=== PATIENT | female | born 1985 | race Caucasian/White ===

== ENCOUNTER → 2017-12-03 15:47 | Outpatient (CLI) | payer BC, MEDICAID, SELFPAY ==
[2017-12-03 16:28] LABS: Absolute Lymphocyte Count 1.41 X10^3/ul (0.83-4.51); Absolute Neutrophil Count 7.6 X10^3/uL (2.0-7.7); Basophil# 0.02 X10^3/uL; Basophil% 0.2 % (0-1); Eosinophil# 0.33 X10^3/uL; Eosinophils% 3.3 % (0-5); Hematocrit 39.7 % (37-47); Hemoglobin 13.6 g/dl (12.0-15.0); Lymphocyte # 1.41 X10^3/ul (4.0); Mean Corp Hgb Conc 34.3 g/gl (32-36); Mean Corpuscular Hgb 30.8 pg (27.0-32.0); Mean Corpuscular Volume 89.8 fL (81-99); Mean Platelet Vol. 9.3 fl (6.2-12.0); Monocyte# 0.63 X10^3/uL; Monocyte% 6.3 % (0-10); Neutrophil # 7.61 X10^3/uL (2.7-7.7); Neutrophil % 75.4 % (47-70); POSITIVE COUNT NO; POSITIVE DIFFERENTIAL NO; POSITIVE MORPHOLOGY NO; Platelet Count 286 K/mm3 (150-450); RBC Distribution Width CV 13.2 % (11.6-14.6); Red Blood Count 4.42 M/mm3 (4.2-5.4); White Blood Count 10.1 K/mm3 (4.4-11.0)
== END ==
PROVIDERS: Visit Provider Nurse Practitioner Women's Health
DX: O09.90 Supervision of high risk pregnancy, unspecified, unspecified trimester (principal); O09.899 Supervision of other high risk pregnancies, unspecified trimester; Z67.91 Unspecified blood type, Rh negative
CPT/HCPCS: 36415; 85025; 86850; 86900

== ENCOUNTER 2018-01-12 17:20 | Outpatient (CLI) | payer BC, MEDICAID, SELFPAY ==
[2018-01-12 17:27] VITALS: BMI 50.8
--- NOTE | 2018-01-12 17:28 | US_ITS ---
STUDY: SECOND AND THIRD TRIMESTER OBSTETRICAL ULTRASOUND - LIMITED REASON FOR EXAM: Female, 32 years old. growth. LMP: 05/22/2017 PRIOR ULTRASOUND: None. TECHNIQUE: Transabdominal ultrasound evaluation was performed. FINDINGS: There is a single intrauterine fetus. The fetus is in a breech presentation. There is demonstrated cardiac activity with a heart rate of 161 bpm. There is a normal amniotic fluid volume. The largest amniotic fluid pocket measures 5.9 cm. The amniotic fluid index (FUNMI) is 18.9 cm. The placenta is anterior in location and is not low lying. There are Grade 1 placental changes. The cervix measures 3.0 cm in length. BIOMETRY: BPD: 8.0: 32 weeks, 2 days HC: 31.5: 35 weeks, 3 days AC: 29.6: 33 weeks, 5 days FL: 6.3: 34 weeks, 6 days Age by LMP: 33 weeks, 4 days. JULIAN by LMP: 02/26/2018. age by prior US: weeks, days. JULIAN by prior US: . age by current US: 33 weeks, 4 days. JULIAN by current US: 02/26/2018. Estimated weight: 2164 grams, +/- 316 grams, 34 percentile. Gender: US/OB Limited With Biometrics IMPRESSION: Single live fetus in a vertex presentation. survey not performed on this exam. Placenta is grade 1 and is not low-lying. Cervix is closed. age by current US: 33 weeks, 4 days. JULIAN by current US: 02/26/2018. Estimated weight: 2164 grams, +/- 316 grams, 34 percentile. Electronically Signed: Armand Epstein MD at 18:52 EDT , Service support ,
--- NOTE | 2018-01-19 05:23 | OB.TRI.HP_ITS ---
- Problem List (1) Supervision of high risk , antepartum Status: Acute Comment: JULIAN 02/26/18 boy Antonio John Paul ([place]) (2) BMI 50.0-59.9, adult Status: Acute Comment: weekly nst from 32 on History of Present Illness Reason For Visit: PROLONGED MONITORING Home Medications Medication Instructions Recorded Vits [Prenatabs FA] 1 tab PO DAILY 01/15/17 hydroxyprogesterone caproate 250 250 mg IM QWEEK 11/19/17 mg/mL intramuscular oil ondansetron HCl 4 mg tablet 8 mg PO Q4H #90 tab 11/19/17 blood sugar diagnostic strips See Dose Instructions .ROUTE 12/03/17 .MEDSUPPLY #50 ea blood-glucose meter kit See Dose Instructions .ROUTE 12/03/17 .MEDSUPPLY #1 ea Allergies metronidazole [From Flagyl] Allergy (Mild, Verified 01/12/18 16:32) Other erythromycin base Allergy (Verified 01/12/18 16:32) Hives Penicillins Allergy (Verified 01/12/18 16:32) Unknown azithromycin Adverse Reaction (Verified 01/12/18 16:32) Other YEAST INFECTION cirpo Allergy (Mild, Uncoded 01/12/18 16:32) Other - Pertinent Past Medical History Surgical History: Past Surgical History (Last Reviewed 01/12/18 @ 16:33 by Rosa Person) S/P cholecystectomy 2017 NST - FHR Rate Baby A Baseline: 150 Variability:: Moderate Accelerations:: 15 x 15 Decelerations:: None NST Reactive:: Yes FHR Category:: Category I Uterine Activity:: no regular Impression/Plan NST done secondary to obesity, nonreactive NST in office, reactive nst, growth us WNL
== END 2018-01-12 19:20 | disposition home or self-care (01) ==
LOC: WPOUT 17:26 → WP 17:27
PROVIDERS: Visit Provider Obstetrics & Gynecology
DX: O99.210 Obesity complicating pregnancy, unspecified trimester (principal); Z68.43 Body mass index [BMI] 50.0-59.9, adult; Z3A.00 Weeks of gestation of pregnancy not specified
CPT/HCPCS: 59025; 59050; 76816; 99218; G0378

== ENCOUNTER → 2018-01-29 14:00 | Outpatient (CLI) | payer BC, MEDICAID, SELFPAY ==
--- NOTE | 2018-01-29 14:00 | DT_ITS ---
This patient was seen during an EMR downtime January 25, 2018 - February 01, 2018. This patient may have a combination of paper and electronic documentation or all paper documentation. All documentation is viewable within the e-chart portion of [employer] for each patient visit.
== END ==
PROVIDERS: Visit Provider Obstetrics & Gynecology
DX: Z34.83 Encounter for supervision of other normal pregnancy, third trimester (principal)
CPT/HCPCS: 82043; 82570; 84156

== ENCOUNTER 2018-01-31 15:55 | Outpatient (CLI) | payer BC, MEDICAID, SELFPAY ==
--- NOTE | 2018-01-31 15:55 | DT_ITS ---
This patient was seen during an EMR downtime January 25, 2018 - February 01, 2018. This patient may have a combination of paper and electronic documentation or all paper documentation. All documentation is viewable within the e-chart portion of [employer] for each patient visit.
[2018-02-01 10:54] LABS: Group B Strep DNA By PCR Negative (Negative); Internal Control PASS; Probe Check PASS; Specimen Processing Control PASS
== END 2018-01-31 17:05 | disposition home or self-care (01) ==
LOC: WPOUT 17:24 → WP 17:25
PROVIDERS: Visit Provider Obstetrics & Gynecology
DX: O36.8190 Decreased fetal movements, unspecified trimester, not applicable or unspecified (principal); Z3A.00 Weeks of gestation of pregnancy not specified
CPT/HCPCS: 59025; 59050; 87081; 87653; 99218; G0378

== ENCOUNTER → 2018-02-11 16:14 | Outpatient (CLI) | payer BC, MEDICAID, SELFPAY ==
--- NOTE | 2018-02-11 16:16 | US_ITS ---
STUDY: OBSTETRICAL ULTRASOUND - BIOPHYSICAL PROFILE REASON FOR EXAM: Female, 32 years old. well being. No movement in office LMP: 05/22/2017 PRIOR ULTRASOUND: 01/12/2018 TECHNIQUE: Transabdominal ultrasound evaluation was performed. FINDINGS: There is a single intrauterine fetus. The fetus is in a cephalic presentation. There is demonstrated cardiac activity with a heart rate of 160 bpm. There is a normal amniotic fluid volume. The largest amniotic fluid pocket measures 11.7 x 5.2 cm. The amniotic fluid index (FUNMI) is 13.5 cm. The placenta is anterior in location and is not low lying. There are Grade 1 placental changes. Age by LMP: 37 weeks, 6 days. JULIAN by LMP: 02/26/2018. Gender: Male BIOPHYSICAL PROFILE: Breathing Movements (FBM): 0 Gross Body Movements (GBM): 2 Tone (FT): 2 Amniotic Fluid Volume (AFV): 2 TOTAL SCORE: US/Biophysical Prof W/O Non Stres IMPRESSION: Abnormal biophysical profile 01/29. No demonstrated breathing movement N.B. : The above information has been verbally conveyed by Mikie Clemente DO to Dr. Opal Bailey, Referring Physician, on 02/11/2018 17:49:15 (ET). Electronically Signed: Mikie Clemente DO at 17:49 EDT Tel , Service support , N.B. : The above information has been verbally conveyed by Mikie Clemente DO to Dr. Opal Bailey, Referring Physician, on 02/11/2018 17:49:15 (ET).
== END ==
PROVIDERS: Family Provider Family Medicine; PCP Family Medicine; Visit Provider Obstetrics & Gynecology
DX: O36.8130 Decreased fetal movements, third trimester, not applicable or unspecified (principal); Z3A.37 37 weeks gestation of pregnancy
CPT/HCPCS: 76819

== ENCOUNTER 2018-02-12 17:35 | Inpatient (IN) | payer BC, MEDICAID, SELFPAY ==
[2018-02-12 15:51] VITALS: BMI 51.8
--- NOTE | 2018-02-12 16:41 | US_ITS ---
STUDY: OBSTETRICAL ULTRASOUND - BIOPHYSICAL PROFILE REASON FOR EXAM: Female, 32 years old. well-being. LMP: May 22, 2017. PRIOR ULTRASOUND: January 12, 2018 and February 11, 2018 TECHNIQUE: Transabdominal ultrasound evaluation was performed. FINDINGS: There is a single intrauterine fetus. The fetus is in a cephalic presentation. There is demonstrated cardiac activity with a heart rate of 152 bpm. There is a normal amniotic fluid volume. The largest amniotic fluid pocket measures 6.2 cm. The amniotic fluid index (FUNMI) is 14.97 cm. The placenta is . There are Grade 1 placental changes. Age by LMP: 37 weeks, 6 days. JULIAN by LMP: January 27, 2018.. age by prior US: 37 weeks, 6 days. JULIAN by prior US: January 27, 2018. BIOPHYSICAL PROFILE: Breathing Movements (FBM): 0 Gross Body Movements (GBM): 0 Tone (FT): 2 Amniotic Fluid Volume (AFV): 2 TOTAL SCORE: 4 / 8 US/Biophysical Prof W/O Non Stres IMPRESSION: biophysical profile of 48. Electronically Signed: Maico Griffin DO at 18:41 EDT Tel [phone], Service support ,
[2018-02-12] MEDS: Lactated Ringers 1,000 ML 50 ML IV (18:00)
[2018-02-12 18:27] LABS: Hematocrit 40.7 % (37-47); Mean Corp Hgb Conc 34.4 g/gl (32-36); Mean Corpuscular Hgb 30.6 pg (27.0-32.0); Mean Corpuscular Volume 89.1 fL (81-99); Mean Platelet Vol. 9.4 fl (6.2-12.0); Platelet Count 285 K/mm3 (150-450); RBC Distribution Width CV 14.1 % (11.6-14.6); RBC Distribution Width SD 45.1 fl (35.1-43.9); Red Blood Count 4.57 M/mm3 (4.2-5.4); Scan Indicated on CBC? Y/N NO; White Blood Count 11.5 K/mm3 (4.4-11.0)
[2018-02-12] MEDS: Oxytocin 30 units/NS 500 ml 30 UNITS/500 ML IV.SOLN IV (20:00)
[2018-02-12 21:47] LABS: Chlamydia Trachomatis by PCR Negative (Negative); Neisserai gonorrhoeae by PCR Negative (Negative); Probe Check PASS; Sample Adequacy Control PASS; Specimen Processing Control PASS
[2018-02-13] VITALS (21 sets, daily range): BP systolic 91–139; BP diastolic 55–85; PULSE 68–84; RESP 14–18; TEMP 35.7–36.8; O2SAT 97–100
[2018-02-13] MEDS: Lactated Ringers 1,000 ML 50 ML IV ×2 (00:22→06:00)
--- NOTE | 2018-02-13 00:53 | PCM.HP.OB ---
- Problem List (1) H/O biophysical profile with non-stress test Status: Acute (2) Rh negative status during Status: Acute Qualifiers: Comment: rhogam at 28 weeks and PRN (3) History of marijuana use Status: Acute Comment: random tox screen, encouraged cessation (4) Supervision of high risk , antepartum Status: Acute Comment: JULIAN 02/26/18 boy Antonio John Paul ([place]) (5) BMI 50.0-59.9, adult Status: Acute Comment: weekly nst from 32 on (6) History of PROM in previous , currently Status: Acute Qualifiers: Comment: sees MFM, progesterone injections History Date of Admission: 02/12/18 Final JULIAN: 02/26/18 Gestational age: 38 Weeks and 1 Days History of this : This is a 32 year-old, G2, P0 at 38 weeks gestational age 1 day. she was seen in the office yesterday for weekly nst for obesity and had a nonreactive NST with a BPP of 6/8. repeat nst in 24 hours was still non reactive and the BPP was only 4/8- 2 off for gross movement and for breathing. due to the 4/8 BPP it was recommended for IOL. Surgical History: Surgical History (Last Reviewed 02/11/18 @ 15:37 by Teressa Delgado) S/P cholecystectomy Z90.49 2017 Allergies metronidazole [From Flagyl] Allergy (Mild, Verified 02/11/18 15:36) Other erythromycin base Allergy (Verified 02/12/18 15:53) Hives Penicillins Allergy (Verified 02/12/18 15:53) Unknown azithromycin Adverse Reaction (Verified 02/12/18 15:53) Other YEAST INFECTION cirpo Allergy (Mild, Uncoded 02/12/18 15:53) Other NAUSEATED Home Medications: Home Medications Vits [Prenatabs FA] 1 tab PO DAILY 01/15/17 ondansetron HCl 4 mg tablet 8 mg PO Q4H #90 tab 11/19/17 Smoking Status: Never smoker Alcohol: None Substance Use Type: Marijuana Number of Fetus(es): 1 Heart Tracin moderate variability non reactive category I tracing TOCO Analysis: irregular ctx History Past Pregnancies: Past Pregnancies Pregancy History 2 Elective abortions Hx Para Spontaneous abortions 1 Hx # Term Pregnancies Ectopic pregnancies Hx # Pregnancies Multiple births # of living children Past Pregnancies Del. Date Name GA/Weeks Outcome Route Bth Weight [facility] Unknown 01/08/17 19 week loss 19 spontaneous Delivery Date: 01/08/17 On 11/19/17 @ 15:59 MelvinOpal ross cervical insufficiency PPROM Delivery Date: On 11/19/17 @ 15:32 ZulyJuany robin Miscarriage at 19 weeks Labs: Mom's Labs & Results 02/12/18 02/12/18 02/12/18 18:00 18:00 18:25 WBC 11.5 H RBC 4.57 Hgb 14.0 Hct 40.7 MCV 89.1 MCH 30.6 MCHC 34.4 RDW 14.1 RDW Differential 45.1 H Plt Count 285 MPV 9.4 Chlam trachomat DNA PCR N.gonorrhoeae DNA (PCR) Blood Type Cancelled B NEGATIVE Antibody Screen Cancelled NEGATIVE 02/12/18 19:20 WBC RBC Hgb Hct MCV MCH MCHC RDW RDW Differential Plt Count MPV Chlam trachomat DNA PCR Negative N.gonorrhoeae DNA (PCR) Negative Blood Type Antibody Screen Course Did the patient receive Yes care? Labs Blood Type: B RH: NEGATIVE RPR/VDRL/Syphilis Nonreactive Rubella status Immune HbSAg Negative Date Done: 07/29/17 Chlamydia Not Done Gonorrhea Negative HIV/AIDS Non-Reactive Group B Strep: Negative Current Obstetrical History Gestational Diabetes No Incompetent Cervix No Infertility No IUGR No Macrosomia No Hypertension/Pre-eclampsia No Placenta Previa/Abruption No PTL/PROM No Uterine anomaly No Oligohydramnios No Polyhydramnios No Multiple gestation No Past Medical History Asthma No Diabetes No Hypertension No Heart disease No Mitral valve prolapse No Neurologic/Seizure disorder/ Yes: MIGRAINES Migraines Kidney disease No Liver disease No Varicosities No Clotting disorders/Hx of DVT No Thyroid Dysfunction No Other medical diseases No Psychiatric disorders No Major trauma No Abnormal PAP smear No Sleep apnea No Mammogram in the last 2 years No Social History Marital Status: Alleged father SHAHBAZ TITI Hx Smoking No Smoking Status Never smoker Substance Use Type Marijuana How long have you used LAST USED IN NOVEMBER 2017 substances (years)? Expected Infant Delivery Method: Spontaneous Vaginal Review of Systems Constitutional: Denies: Fever, Malaise Eyes: Denies: Blurred vision, Vision Change HEENT: Denies: Head Aches, Visual Changes Cardiovascular: Denies: Chest Pain, Palpitations Respiratory: Denies: Cough, Shortness of Breath, Wheezing Gastrointestinal: Denies: Abdominal Pain, Diarrhea, Nausea, Vomiting Genitourinary: Denies: Dysuria, Hematuria Musculoskeletal: Denies: Joint Pain, Muscle pain Skin: Denies: Lesions, Rash Neurological: Denies: Blurred vision, Focal weakness, Headaches Psychiatric: Denies: Anxiety, Depression Endocrine: Denies: Heat/ Cold Intolerance Hematologic/ Lymphatic: Denies: Easy Bruising, Easy Bleeding Physical Exam General: Alert, Cooperative, No apparent distress HEENT: Atraumatic, Normocephalic. Negative for: Thyromegaly, Lymphadenopathy Cardiovascular: Regular rate Lungs: Normal air movement Abdomen: Soft, Non Tender, Gravid Neurological: Deep Tendon Reflexes 2+/4 and Symmetrical, Neuro grossly intact. Negative for: Clonus ASSET MANAGEMENT COORDINATOR: Normal external genitalia. Negative for: Vulvar lesions Estimated gestational size: Appropriate for gestational size Presentation: Cephalic Cervix Dilation (cm): 3 Station: -3 Effacement (%): 50 Assessment/Plan All Active Problems (Last Reviewed 02/11/18 @ 15:37 by Teressa Delgado) H/O biophysical profile with non-stress test (Acute) Rh negative status during (Acute) History of marijuana use (Acute) Supervision of high risk , antepartum (Acute) BMI 50.0-59.9, adult (Acute) History of PROM in previous , currently (Acute) This is a 32 year-old, G [], P [], at 38 weeks gestational age.
[2018-02-13] MEDS: fentaNYL-bupivacaine (epidural) 100 ML BAG EPIDURAL (02:10)
--- NOTE | 2018-02-13 05:30 | PCM.PN.BLA ---
Progress Note in house monitoring the tracing for the last 4 1/2 hours. intermittent category I-II tracing. recurrent late decels resolved with position changes and IVFs. s/p epidural. patient has pitocin off and made change to 6 cm. continue expectant mangement- continue to monitor closely for well being and tolerance to labor. amnioinfusion going.
--- NOTE | 2018-02-13 08:51 | PCM.PN.BLA ---
Progress Note FHT 140s min-moderate variability. intermittent periods of late/variable decels and then spontaneous resolution. overall reassuring will continue to monitor labor progress because on adequate pitocin. pit at 5 mU.
[2018-02-13] MEDS: Ondansetron 4 MG/2 ML Vial IV (08:52)
[2018-02-13] MEDS: Sodium Citrate/Citric Acid 30 ML UDC PO (09:28)
--- NOTE | 2018-02-13 09:30 | PCM.PN.BLA ---
Progress Note fht min-moderate variability with recurrent late decels and severe variable with abnormal labor progress only 1/2 cm change in almost 2 hour of adequate contractions. proceed with primary for intolerance to labor.
--- NOTE | 2018-02-13 09:35 | OP.PCM_ITS ---
Problem List (1) H/O biophysical profile with non-stress test Status: Acute (2) Rh negative status during Status: Acute Qualifiers: Comment: rhogam at 28 weeks and PRN (3) History of marijuana use Status: Acute Comment: random tox screen, encouraged cessation (4) Supervision of high risk , antepartum Status: Acute Comment: JULIAN 02/26/18 boy Antonio John Paul [facility]) (5) BMI 50.0-59.9, adult Status: Acute Comment: weekly nst from 32 on (6) History of PROM in previous , currently Status: Acute Qualifiers: Comment: sees MFM, progesterone injections Report of Operation Date of Procedure: 02/13/18 Pre-Operative Diagnosis: recurrent decelerations with abnormal labor progress Post-Operative Diagnosis: same Surgery/Procedure Performed:: primary LTCS Description of Surgical Findings:: normal uterus tubes ovaries salvage winder: Zabrina Ferrara Type of Anesthesia:: Epidural Special Medications: ayalaef francesca Specimen's removed: male Drains: underwood Estimated Blood Loss (mL): 1200 Fluids Replaced: crystalloid Description of Procedure: patient was induce for a 4/8 bpp and had a FHT that had moderate variability upon presentation and no recurrent decels, and underwent over 12 hours of IOL with pitocin being turned on and off due to feta lintolerance to labor, and made only 3 cm of cervical change. Patient developed recurrent late and variable decels with min-moderate variability, and after almost 2 hours of adequate ctx and being 6 cm there was minimal cervical change with abnormal labor progress therefore the decision was made to perform a primary c section. The patient was placed in the dorsal supine position with leftward tilt. Patient was prepped and draped in the normal sterile fashion. Pfannenstiel skin incision was made with the scalpel and carried through to the underlying layer of fascia with the scalpel. Fascia was nicked in the midline and the incision extended laterally. The rectus bellies were dissected off superiorly and inferiorly with out complication both sharply and bluntly. The peritoneum was entered digitally. The incision was stretched and a low transverse uterine incision was made with the scalpel. The 's head was delivered atraumatically followed by the anterior and posterior shoulders without complication the rest of the delivered. The cord was clamped and cut and the infant was handed off to awaiting nurse. The placenta was delivered spontaneously immediately following and was noted to be intact and have a three- vessel cord. self retaining retractor was used. The uterus was cleared of all clots and debris, and the incision was closed in a double layer closure using # 1 Monocryl. The uterus was returned to the maternal abdomen and gutters were cleared of all clots and debris. The ovaries and fallopian tubes were noted to be within normal limits. The peritoneum was closed with 3-0 Monocryl in a running fashion. Fascia was closed with 0 PDS in a running fashion. Subcutaneous tissue was copiously irrigated and the skin was closed with 3-0 Monocryl in a subcutaneous and subcuticular fashion. Steri-Strips and silver Mepilex dressing were applied without complication. Patient was taken to recovery in stable condition. Grafts/Implants Used: none - Complications none - Admit VTE Documentation VTE Present on Admission: No VTE Mechan Device Prophylaxis: SCD's
--- NOTE | 2018-02-13 09:56 | PLAC_PTH ---
PATIENT: ISAÍAS WALLS LOC: WP U#:[id number] AGE/SX: 32/F ROOM: WP007 RE02/12/[address]: Dr. Opal Mosley MD : 1985 BED: 1 DIS: 02/15/2018 SPEC #: [id number] RECD: 02/13/18 18:42 STATUS: LUIS REAlexi #: [id number] WILY: 02/13/18 09:[address]: Opal Mosley DEPT: SURGICAL PATHOLOGY RECD BY: Horacio Branham ENTERED: 02/15/18 10:14 SP TYPE: PLACENTA OTHR DR: Dr. Michelle Man MD Tissues: Placenta, NOS Procedures: Surgery Specimen Level V HEADER OPERATION: Primary section PRE-OP DIAGNOSIS: Recurrent decelerations with abnormal labor progress TISSUE SUBMITTED: Placenta MICROSCOPIC DIAGNOSIS Placenta: Placental disc ? third trimester placenta (351 grams) - focal chronic vasculitis of unknown etiology Membranes ? no pathologic diagnosis Umbilical cord ? three blood vessels and no pathologic diagnosis SJ:yenny 02/16/18 COMMENT Case has been reviewed in consultation with Dr. Chang who concurs with the above diagnosis. IDC:AM MICROSCOPIC DESCRIPTION Slides are reviewed. GROSS DESCRIPTION SPECIMEN: PLACENTA / CLINICAL INFORMATION: A. Weight: 2.917 kg B. Gestational Age: 38 weeks C. Sex: Male PLACENTAL WEIGHT (POST FIXATION): 351 grams PLACENTAL DIMENSIONS: 15 x 14 x 2.5 cm PLACENTAL SHAPE: Usual ovoid PLACENTAL WEIGHT FOR GESTATIONAL AGE: Within 10-99th percentile. MEMBRANES - Present A. Insertion: Marginal B. Site of rupture from edge: 4.5 cm from edge of placental disc C. Color of membrane: Mcqueen-hernandez D. Abnormalities: None UMBILICAL CORD - Present A. Color: Mcqueen-hernandez B. Insertion: Eccentric C. Length: 33 cm D. Diameter: 1.5 cm E. Number of vessels: Three F. Abnormalities: None PLACENTAL DISC - Present A. Color of surface: Mcqueen-hernandez B. surface abnormalities: None C. Maternal cotyledons: Intact with minimal tears D. Attached retro placental clot: No clot E. Cut surface: Dark red and spongy F. Lesions: None G. Separate clot: Absent SECTIONS SUBMITTED: 1. Membrane roll and umbilical cord ( end is inked) 2. Placental disc, and maternal surfaces 3. Placental disc, and maternal surfaces 4. Placental disc, and maternal surfaces AM:sp 02/15/18 TC: 3 CPT: 09308
[2018-02-13] MEDS: Lactated Ringers 1,000 ML 100 ML IV ×2 (10:50→20:34)
[2018-02-13] MEDS: Ketorolac 30 MG/ML Syringe IV ×2 (16:30→22:20)
--- NOTE | 2018-02-13 19:12 | NURSING ---
1899 Tory pad changed for moderate amount farzaneh lewis. FF at U. Moving well in bed. States she is comfortable. Holding and cuddling infant.
--- NOTE | 2018-02-13 22:00 | NURSING ---
Mother requesting to change to formula feeding. States she is frustrated and in pain and would like to have a bottle. Discussed difficulties with and answered questions. Patient discussed decision with . Bottles obtained for pt and taught about frequency and amount of bottle feeding and burping. States understanding and denies questions.
[2018-02-14] VITALS (11 sets, daily range): BP systolic 108–118; BP diastolic 54–63; PULSE 69–82; RESP 16–20; TEMP 36.4–36.6; O2SAT 0–100
[2018-02-14] MEDS: Ketorolac 30 MG/ML Syringe IV ×4 (03:42→22:04)
[2018-02-14 06:40] LABS: Hematocrit 29.7 % (37-47); Hemoglobin 9.9 g/dl (12.0-15.0); Mean Corp Hgb Conc 33.3 g/gl (32-36); Mean Corpuscular Hgb 30.6 pg (27.0-32.0); Mean Corpuscular Volume 91.7 fL (81-99); Mean Platelet Vol. 9.2 fl (6.2-12.0); Platelet Count 228 K/mm3 (150-450); RBC Distribution Width CV 14.1 % (11.6-14.6); RBC Distribution Width SD 46.2 fl (35.1-43.9); Red Blood Count 3.24 M/mm3 (4.2-5.4); White Blood Count 11.2 K/mm3 (4.4-11.0)
[2018-02-14 06:44] LABS: Scan Indicated on CBC? Y/N NO
[2018-02-14 06:51] LABS: Pathology Specimen OB SEE PATHOLOGY REPORT
[2018-02-14] MEDS: 0.9% Saline Lock 10 ML Syringe IV ×3 (09:23→22:04)
[2018-02-14] MEDS: Enoxaparin 40 MG/0.4 ML Syringe SC (09:24)
--- NOTE | 2018-02-14 10:48 | PN.OBGYN_ITS ---
Patient Problems: Active and Suspected Problems (Last Reviewed 02/11/18 @ 15:37 by Teressa Delgado ) H/O biophysical profile with non-stress test (Acute) Subjective: doing well no complaints pain controlled - Physical Exam General: Alert, Oriented x3 Vital Signs Temp Pulse Resp BP Pulse Ox 97.8 F 79 20 H 111/54 L 0 02/14/18 09:30 02/14/18 09:30 02/14/18 09:30 02/14/18 09:30 02/14/18 09:30 Oxygen Delivery Method Room Air Weight: 330 lb 14.621 oz Body Mass Index (BMI) 51.8 Intake and Output for Last 24 Hours 02/12/18 02/13/18 02/14/18 23:59 23:59 23:59 Intake Total 4611 / 4611 1054 / 1054 Output Total 2350 / 2350 950 / 950 Balance 2261 / 2261 104 / 104 Laboratory Tests Past 24 Hrs 02/14/18 06:15 WBC 11.2 H RBC 3.24 L Hgb 9.9 L Hct 29.7 L MCV 91.7 MCH 30.6 MCHC 33.3 RDW 14.1 RDW Differential 46.2 H Plt Count 228 MPV 9.2 Medical Necessity - Tobacco Use Smoking Status: Never smoker Assessment/Plan All Active Problems (Last Reviewed 02/11/18 @ 15:37 by Teressa Delgado) H/O biophysical profile with non-stress test (Acute) Rh negative status during (Acute) History of marijuana use (Acute) Supervision of high risk , antepartum (Acute) BMI 50.0-59.9, adult (Acute) History of PROM in previous , currently (Acute) s/p LTCS routine care ambulate increase po intake oral pain control
[2018-02-14] MEDS: HYDROcodone Bitartrate/Apap 5/325 Tablet PO (13:57)
[2018-02-15] MEDS: HYDROcodone Bitartrate/Apap 5/325 Tablet PO ×2 (01:25→12:37)
[2018-02-15 02:00] VITALS: BP 126/74; PULSE 78; RESP 18; TEMP 36.6; O2SAT 98
[2018-02-15] MEDS: Ketorolac 30 MG/ML Syringe IV ×2 (04:37→10:00)
[2018-02-15 08:04] VITALS: BP 104/68; PULSE 65; RESP 18; TEMP 36.4; O2SAT 99
[2018-02-15] MEDS: Enoxaparin 40 MG/0.4 ML Syringe SC (10:00)
[2018-02-15] MEDS: 0.9% Saline Lock 10 ML Syringe IV (10:01)
[2018-02-15 14:26] VITALS: BP 131/80; PULSE 71; RESP 18; TEMP 36.6; O2SAT 100
--- NOTE | 2018-02-15 14:58 | CASEMGMT ---
Social Work Assessment Labor and Delivery Unit Date of Referral: 02/14/2018 Time of Referral: 0743 Referred By: Dr. Hendrickson Date of Intervention: 02/15/2018 Time of Intervention: 1300 Reason for Referral: maternal use of marijuana in History obtained from: Medical record and mother of baby (MOB) Gisselle Paez Household composition: MOB, father of baby (FOB) Holden Paez, and MOBdebbie allen. MOB reports home situation is safe and adequate. Patient's parent/guardian status: MOB and FOB have been for 11 years. MOB denies any safety concern or history of abuse in this relationship. MOB reports alejandro Sales is 13 years old and is a good help to MOB. MOB and FOB now have Antonio Paez together. Medical History: MOB is G2, P0 to 1 after delivering Antonio. MOB and FOB had a 19 week gestational loss in December 2016. MOB with care starting in the first trimester in [place], transferring care to [place] at 25 weeks. Infant born weighing 6 pounds 11 ounces, apgars 8 and 9 at 1 and 5 minutes of life. Educational Status: MOB graduated high school and has some college. No reported issues with reading, writing, or learning comprehension. Financial Status: FOB works at [employer] on first shift. This is the only income in the home. Supplies: MOB reports to have car seat, pack-n-play for sleeping, clothing, diapers, wipes, and then plans to buy formula and bottles when leaves the hospital. Childcare/Caregiver(s): MOB Transportation: No reported issues. MOB drives and has a vehicle. Programs/Agencies Involved: MOB reports to have Medicaid through [facility], and may look into food card (after social work education that can purchase formula with the food card). MOB reports to have WIC. MOB denies any other agency involvement. Children Services/Legal Issues: No reported legal issues. MOB denies children services involvement for MOB or FOB, though MOB admits that children services was out to the house when MOBs sister lived in the home. Behavioral Health Issues: Mental health - MOB denies any history of depression, anxiety, or suicidal ideation, plans, intent or attempt. Substance Use History - MOB reports a 16 year history of smoking marijuana, and that last use was in November 2017. MOB reports use during was related to nausea. MOB reports that marijuana usage started after MOBs sister, who lived with MOB, got MOB started. MOB reports it was a vicious cycle for years, but since the sister moved out of the home it has been a lot easier to cease use. MOB denies intent to use again in the future. MOB denies history of any other illicit drug use history inlcuding heroin, cocaine, meth, or narcotic pills. Drug Screens - no maternal drug screen noted in record for this , though history of previous positive drug screen last . Infant with negative urine screen and meconium is pending. Family/Social Stressors: No reported stressors at this time. MOBs sister and children were living in the home for 4 years but moved out in August. MOB reports this has been big relief though has been a change as well. Support Systems: MOB reports FOB, alejandro Sales, and a neighbor who just had a baby are all practical supports. MOB reports FOB is a good emotional support as well as MOBs aunt and grandparents. MOB reports will have help at home going from support system if needed. Depression/Shaken Baby/Safe Sleeping: MOB and FOB aware of shaken baby and safe sleeping, able to give appropriate responses. Educated to depression, anxiety, risk factors and importance of seeking out help and support should symptoms arise. ASSESSMENT: Met with MOB and FOB together initially and then with MOB alone to discuss mental health, substance use, and relationship/safety issues. MOB polite, cooperative, appropriate mood and congruent affect. MOB held the baby throughout social work visit, looked at baby, smiled and was attentive. MOB voices loving feelings for baby and that baby has been waited for, for a long time. MOB reports to have needed baby supplies, to have access to support system, denies any depression or anxiety, and indicates intent to abstain from marijuana. MOB reports last use was in November. Educated MOB to mandate to call children services for all positive drug screens, and that should infants meconium come back positive a referral will have to be made. Offered MOB time to ask questions, which MOB did not have any and accepted information offered without incident. MOB reports to be looking forward to returning home with baby. MOB repots may look into food card through [facility]. MOB declines a referral to [facility] at this time. PLAN: MOB and baby to home when ready for discharge. Provided [facility] resources list, including mental health and substance treatment options. Provided packet on depression, including online resources for such. Will monitor for meconium drug screen results and make referrals as indicated based on test results. No other services requested or indicated. -DARIAN Ken, NON CDL DRIVER
--- NOTE | 2018-02-15 15:40 | DCINST_ITS ---
Discharge Diet: No Restrictions Discharge Activity: May Not Drive - for 2 weeks, May not drive while taking narcotic pain medications., May Shower, May Take a Tub Bath - in 7 days May resume sexual activity in: 4-6 weeks Lifting Restrictions: 20 pounds Additional Activity Instructions:: Nothing in the vagina for 4-6 weeks. You may return to work/school in 6 weeks. Call your doctor if your incision/area has: Continuous Slow Oozing, Sudden Increased Bleeding, Increased Pain/ Swelling, Increased Redness, Foul Smelling Discharge Call your doctor if you observe: Fever of 101 or Higher, Using more than one pad per hour - for 2 hours Suture Line Care: Avoid Pulling/Pushing, Avoid Pinching/Bending Cleanse incision/area with: Keep Dressing Clean & Dry Additional Instructions: If you experience any of the following, contact your healthcare provider. * Bleeding that soaks a pad every hour for 2 hours * Fever 100.4 or higher * Unrelieved incision or abdominal pain * Swelling, redness, discharge or bleeding from your incision or episiotomy site * Your incision begins to separate * Problems urinating (including inability to urinate or burning while urinating) . * Visual changes * Severe headache * Flu-like symptoms * Pain or redness in one of both of your breasts * Pain, warmth, tenderness or swelling in your legs, especially the calf area * Frequent nausea and vomiting * Symptoms of depression or anxiety If you experience any of the following, call 911 or go to the nearest Emergency Room. * Chest pain * Problems breathing * Seizure activity * Partial or complete paralysis of a body part, slurred speech, weakness or drooping of the face, or a sudden inability to walk or hold your balance Allergies/Adverse Reactions: Allergies metronidazole [From Flagyl] Allergy (Mild, Verified 02/11/18 15:36) Other erythromycin base Allergy (Verified 02/12/18 15:53) Hives Penicillins Allergy (Verified 02/12/18 15:53) Unknown acetaminophen [From Percocet] Adverse Reaction (Verified 02/13/18 14:47) Nausea azithromycin Adverse Reaction (Verified 02/12/18 15:53) Other YEAST INFECTION oxycodone [From Percocet] Adverse Reaction (Verified 02/13/18 14:47) Nausea cirpo Allergy (Mild, Uncoded 02/12/18 15:53) Other NAUSEATED Medications to take at Discharge Vits [Prenatabs FA] 1 tab PO DAILY 01/15/17 ondansetron HCl 4 mg tablet 8 mg PO Q4H #90 tab 11/19/17 Naproxen [Naprosyn] 250 - 500 mg PO Q8H PRN PRN #30 tab 02/15/18 Oxycodone HCl/Acetaminophen [Percocet 5-325] 1 - 2 tablet PO Q4H PRN PRN 7 Days #28 tablet 02/15/18 The following prescriptions were given: Oxycodone HCl/Acetaminophen [Percocet 5-325] 1 - 2 tablet PO Q4H PRN PRN 7 Days #28 tablet PRN Reason: Moderate-Severe pain Naproxen [Naprosyn] 250 - 500 mg PO Q8H PRN PRN #30 tab PRN Reason: MILD PAIN Follow-Up: Call to make an appointment with your doctor for an incision check in 1-2 weeks. You will also need a 6 week post- follow up appointment. Please Follow Up With: Opal Mosley MD - Call to make an appointment for an incision check in 1-2 [phone] When: You will need a post- check in 6 weeks. Primary Care Physician: Michelle Man [Primary Care Provider] -
== END 2018-02-15 17:15 | disposition home or self-care (01) | DRG 765 ==
LOC: WPOUT 17:41
PROVIDERS: Admitting Provider Obstetrics & Gynecology; Family Provider Family Medicine; PCP Family Medicine; Visit Provider Obstetrics & Gynecology
DX: O26.899 Other specified pregnancy related conditions, unspecified trimester (principal); O76 Abnormality in fetal heart rate and rhythm complicating labor and delivery; Z68.43 Body mass index [BMI] 50.0-59.9, adult; Z67.91 Unspecified blood type, Rh negative; O99.214 Obesity complicating childbirth; G43.909 Migraine, unspecified, not intractable, without status migrainosus; K21.9 Gastro-esophageal reflux disease without esophagitis; Z90.49 Acquired absence of other specified parts of digestive tract; Z3A.38 38 weeks gestation of pregnancy; Z37.0 Single live birth
CPT/HCPCS: 59025; 59050; 76819; 85027; 86850; 86900; 87491; 87591; 88307; 99218; J7030; J7120; A4216; G0378; J2405

== ENCOUNTER → 2020-04-13 15:28 | Outpatient (CLI) | payer BC, SELFPAY ==
[2020-04-13 15:18] VITALS: BMI 51.7
[2020-04-13 16:44] LABS: Cholesterol 165 mg/dL (200); High Density Lipoprotein 46 mg/dL; Prolactin 7.8 ng/mL; Thyroid Stim Hormone (TSH) 1.97 uIU/mL (0.358-3.74); Triglycerides 239 mg/dL; Very Low Density Lipoprotein 48 mg/dL (5-40)
[2020-04-13 17:12] LABS: Hemoglobin A1c 5.8 % (3.8-5.6)
[2020-04-16 09:19] LABS: HIV - WCH Non-Reactive (Nonreactive); Hepatitis B Surface Antigen Non-Reactive (Nonreactive); Hepatitis C Antibody Non-Reactive (Nonreactive); Rubella IgG 117.9 IU/mL
[2020-04-16 21:27] LABS: V-Zoster IgG (Immunity) 2213 index (Immune >165)
[2020-04-19 05:27] LABS: Rapid Plasmin Reagin (RPR) NONREACTIVE (NONREACTIVE)
== END ==
LOC: LAB 15:30
PROVIDERS: Referring Provider Obstetrics & Gynecology; Visit Provider Obstetrics & Gynecology
DX: N97.9 Female infertility, unspecified (principal)
CPT/HCPCS: 36415; 80061; 83036; 84146; 84443; 86592; 86703; 86762; 86787; 86803; 87340

== ENCOUNTER → 2020-04-27 15:42 | Outpatient (CLI) | payer BC, SELFPAY ==
[2020-04-13 15:18] VITALS: BMI 51.7
--- NOTE | 2020-04-27 15:42 | US_ITS ---
STUDY: ULTRASOUND OF THE FEMALE PELVIS - COMPLETE REASON FOR EXAM: Female, 34 years old. INFERTILITY LMP: 04/24/2020 TECHNIQUE: Transabdominal and endovaginal TECHNICAL QUALITY: Adequate. COMPARISON: None. FINDINGS: The uterus is anteverted and is in a midline position. The uterus measures 10.3 x 6.0 x 4.0 cm. Normal uterine cervix. The endometrium measures 5 mm in thickness, and is hyperechoic. There is no demonstrated endometrial mass. There is no demonstrated myometrial mass. The patient does not have an I.U.D. The right ovary is visualized. The right ovary measures 3.6 x 3.1 x 2.2 cm. There is no right ovarian cyst or ovarian mass. There is no visualized right adnexal mass or complex lesion. There is normal arterial and normal venous vascularity. The left ovary is visualized. The left ovary measures 3.1 x 2.6 x 2.3 cm. There is no left ovarian cyst or ovarian mass. There is no visualized left adnexal mass or complex lesion. There is normal arterial and normal venous vascularity. There is no fluid in the cul-de-sac. The pre void volume of the bladder was 349 ml. US/Pelvic (Non ) IMPRESSION: Normal female pelvis. Electronically Signed: Isiah Dunlap DO at 17:01 EDT Tel [phone], Service support ,
--- NOTE | 2020-04-27 15:42 | US_ITS ---
STUDY: ULTRASOUND OF THE FEMALE PELVIS - COMPLETE REASON FOR EXAM: Female, 34 years old. INFERTILITY LMP: 04/24/2020 TECHNIQUE: Transabdominal and endovaginal TECHNICAL QUALITY: Adequate. COMPARISON: None. FINDINGS: The uterus is anteverted and is in a midline position. The uterus measures 10.3 x 6.0 x 4.0 cm. Normal uterine cervix. The endometrium measures 5 mm in thickness, and is hyperechoic. There is no demonstrated endometrial mass. There is no demonstrated myometrial mass. The patient does not have an I.U.D. The right ovary is visualized. The right ovary measures 3.6 x 3.1 x 2.2 cm. There is no right ovarian cyst or ovarian mass. There is no visualized right adnexal mass or complex lesion. There is normal arterial and normal venous vascularity. The left ovary is visualized. The left ovary measures 3.1 x 2.6 x 2.3 cm. There is no left ovarian cyst or ovarian mass. There is no visualized left adnexal mass or complex lesion. There is normal arterial and normal venous vascularity. There is no fluid in the cul-de-sac. The pre void volume of the bladder was 349 ml. US/Transvaginal Non- IMPRESSION: Normal female pelvis. Electronically Signed: Isiah Dunlap DO at 17:01 EDT Tel [phone], Service support ,
[2020-04-27 17:43] LABS: Estradiol 53.1 pg/mL; Follicle Stimulating Hormone 5.9 mIU/mL; Luteinizing Hormone 3.8 mIU/mL
[2020-05-03 12:07] LABS: Testosterone, % Free 2.81 % (0.50-2.80); Testosterone, Free 1.35 ng/dL (0.10-0.85); Testosterone, Total 48 ng/dL (8-48)
== END ==
PROVIDERS: Referring Provider Obstetrics & Gynecology; Visit Provider Obstetrics & Gynecology
DX: N97.9 Female infertility, unspecified (principal); L68.0 Hirsutism
CPT/HCPCS: 36415; 76830; 76856; 82627; 82670; 83001; 83002; 84402; 84403; 82626

== ENCOUNTER → 2020-06-12 14:57 | Outpatient (CLI) | payer BC, SELFPAY ==
[2020-05-25 14:04] VITALS: BMI 51.7
[2020-06-12 16:48] LABS: Progesterone Level 7.88 ng/mL (See Comment)
== END ==
PROVIDERS: Visit Provider Obstetrics & Gynecology
DX: N97.9 Female infertility, unspecified (principal)
CPT/HCPCS: 36415; 84144